=== PATIENT | male | born 1970 ===

== ENCOUNTER 2020-07-12 09:44 | Day surgery (SDC) | payer OTHER | END 2020-07-12 16:15 | disposition home or self-care (01) | LOC: AMB-ENDOS 09:44 | PROVIDERS: ATTEND Surgery | DX: K63.5 Polyp of colon (principal); K64.8 Other hemorrhoids; Z20.822 Contact with and (suspected) exposure to COVID-19; Z12.11 Encounter for screening for malignant neoplasm of colon ==